=== PATIENT | male | born 1975 | race Caucasian/White ===

== ENCOUNTER → 2023-11-20 | Outpatient (CLI) | payer BC ==
[2023-11-20 14:32] LABS: Basophils # (A) 0.08 X 10*3/uL (0.00-0.10); Basophils % (A) 1.8 %; Eosinophils # (A) 0.37 X 10*3/uL (0.04-0.35); Eosinophils % (A) 8.4 %; HGB 13.2 g/dL (13.0-17.0); Lymphocytes % (A) 29.5 %; MCH 29.5 pg (27.0-32.0); MCHC 33.8 g/dL (32.0-37.0); MCV 87.2 FL (80.0-97.0); Mean Platelet Volume 10.9 FL (9.5-12.2); Monocytes # (A) 0.46 X 10*3/uL (0.20-1.00); Monocytes % (A) 10.4 %; NRBC Per 100 WBC 0 X 10*3/uL (0.00-0.01); Neutrophils # (A) 2.18 X 10*3/uL (1.80-7.70); Neutrophils % (A) 49.4 %; Platelet Count 200 X 10*3/uL (140-440); RBC 4.47 X 10*6/uL (4.40-5.60); RDW 13.3 % (11.5-14.5); WBC 4.41 X 10*3/uL (4.50-10.00)
[2023-11-20 15:10] LABS: ALT 35 U/L (10-49); AST 30 U/L (14-35); Albumin 5.1 g/dL (3.8-4.9); Albumin/Globulin Ratio 1.96 Ratio (1.60-3.17); Alkaline Phosphatase 69 U/L (41-126); BUN/Creat Ratio 10.33 Ratio (12.00-20.00); Blood Urea Nitrogen 9.3 mg/dL (9.0-27.0); Calcium 10.4 mg/dL (8.7-10.3); Carbon Dioxide 22.9 mmol/L (21.6-31.8); Chloride 102 mmol/L (96-109); Chol/HDL Ratio 6.59 Ratio; Globulin 2.6 g/dL (1.6-3.3); Glucose 96 mg/dL (70-110); LDL Cholesterol,Calculated 123.1 mg/dL (0.0-131.0); Sodium 140 mmol/L (135-145); Total Bilirubin 0.5 mg/dL (0.3-1.2); Total Protein 7.7 g/dL (6.2-8.2)
== END | disposition home or self-care (01) ==
LOC: LABWHC1 09:53
PROVIDERS: ATTEND Family Medicine
DX: Z00.00 Encounter for general adult medical examination without abnormal findings (principal); Z13.220 Encounter for screening for lipoid disorders; Z13.29 Encounter for screening for other suspected endocrine disorder; K59.00 Constipation, unspecified; G47.33 Obstructive sleep apnea (adult) (pediatric); E66.3 Overweight; K21.9 Gastro-esophageal reflux disease without esophagitis; G43.109 Migraine with aura, not intractable, without status migrainosus; R53.83 Other fatigue; R53.81 Other malaise; Z68.25 Body mass index [BMI] 25.0-25.9, adult
CPT/HCPCS: 36415; 80053; 80061; 82040; 82306; 82607; 83036; 84270; 84403; 84443; 85025

== ENCOUNTER → 2024-03-10 | Outpatient (CLI) | payer BC ==
[2024-03-10 14:37] VITALS: BP 128/86; PULSE 71; RESP 16; TEMP 98.6
--- NOTE | 2024-03-10 15:10 | P.SLEEP ---
History of Present Illness DATE: 03/10/2024 CONSULTATION/NEW PATIENT EVALUATION HISTORY OF PRESENT ILLNESS/SLEEP-WAKE EVALUATION: 49-year-old gentleman had be en evaluated in the sleep center for obstructive sleep apnea hypopnea syndrome. Patient had been diagnosed with obstructive sleep apnea in 2019 in [place]. Since that time patient is on treatment with CPAP every night. I checked CPAP unit CPAP pressure in the range between 6 and 17, average 15.9. Usage is 25 out of 30 nights, average 5.7 hours per night. Leak is 1 L/min which is normal. Ap jefferson hypopnea index is 1.4 which is normal. SLEEP SCHEDULE: Usually sleep schedule from 10:30 PM to 6:30 AM on weekdays and from 11:30 PM to 7:30 AM on weekend. FALLING ASLEEP: No problems with falling asleep. DURING SLEEP: Practically no snoring with CPAP, patient wakes up from sleep once to use the restroom. No history of hypnogogical hallucinations, sleep paralysis, or cataplexy. DURING THE DAY/WAKE STATE: During the day patient may have episode episodes of tiredness and sleepiness. [place] Sleepiness Scale is 7. Patient may take nap once a day 2-3 times per week. PAST MEDICAL HISTORY: Anxiety, acid reflux, migraine. PAST SURGICAL HISTORY: Right knee ACL and meniscus surgery. MEDICATIONS: Please see below. SOCIAL HISTORY: Please see below. FAMILY HISTORY: Stroke, cancer, mental illness. REVIEW OF SYSTEMS: Snoring without CPAP and practically no snoring on CPAP. No fevers. No double vision. No recent chest pain. No shortness of breath. No abdominal pain. No bleeding episodes. No blood in urine. No seizure episodes. PHYSICAL EXAMINATION: GENERAL: A pleasant patient without any distress. VITAL SIGNS: Please see below. Weight is 204.2 pounds, BMI 38.7. HEENT: PERRLA, EOMI. Evaluation of oropharynx showed tongue protrudes midline, low position of soft palate Mallampati 4. NECK: Supple. No JVD. Thyroid is not palpable. 16.5 inches in circumference. LUNGS: Clear to percussion and to auscultation. Good air exchange. No wheezing or rhonchi. HEART: S1, S2 regular. No murmurs, gallops or rubs. ABDOMEN: Soft and nontender. Bowel sounds are present. No organomegaly appreciated. EXTREMITIES: No clubbing or cyanosis. SPOOL TENDER: Awake, alert, and oriented x3. Cranial nerves 2 to 7 intact. There is no fasciculation or atrophy noted. No focal deficits observed. ASSESSMENT: 1. History of obstructive sleep apnea for about 4 years. Patient continued to use CPAP equipment most of the nights, good compliance. Normal respiration reading from CPAP unit. Extremely low position of soft palate. Retrognathia 3 mm. Obstructive sleep apnea hypopnea syndrome. 2. Obesity, BMI 38.7. 3. Anxiety. 4. Acid reflux. 5 migraine. 6 . Status post right knee ACL and meniscus surgeries. PLAN: 1. Will get results of previous sleep studies. 2. Patient should continue to use CPAP equipment every night for the whole night. 3. Preferable position during sleep on the side. 4. No driving if patient feels any sleepiness. Patient is aware of civil and criminal liability for unsafe driving. 5. Sleep hygiene with regular sleep time for at least 7.5-8 hours. 6. Watching and losing weight. 7. Prescription for all necessary CPAP supplies. 8. Follow-up visit in 6 months, or earlier if patient has any problems Thank you very much for referring this patient for consultation. Sincerely, Stuart Wallace MD, PhD, FAASM. Diplomat of [place] [employer], Sleep Medicine Board by [place] [employer] [place] [employer] of [facility] [place] Past Medical History Past Medical History: GERD/Reflux, Hyperlipidemia, Sleep Apnea/CPAP/BIPAP Additional Past Medical History / Comment(s): High triglycerides, arthritis - grade 3 - knees, anxiety, migraines History of Any Multi-Drug Resistant Organisms: None Reported Past Surgical History: Orthopedic Surgery Additional Past Surgical History / Comment(s): RIGHT KNEE- ACL/MENISCUS (MENISCUS X 3) Past Psychological History: Anxiety Smoking Status: Never smoker Past Alcohol Use History: None Reported Past Drug Use History: None Reported - Past Family History Father Family Medical History: CVA/TIA, Hyperlipidemia Additional Family Medical History / Comment(s): PARKINSONS, LEUKEMIA, INSOMNIA, DEPRESSION (ALSO - BROTHER WITH DIABETES) Medications and Allergies Home Medications Medication Instructions Recorded Confirmed Type Divalproex Sodium [Depakote] 500 mg PO DAILY 03/10/24 03/10/24 History Escitalopram [Lexapro] 10 mg PO DAILY 03/10/24 03/10/24 History Ondansetron Odt [Zofran Odt] 4 mg PO Q12HR PRN 03/10/24 03/10/24 History Pantoprazole [Protonix] 40 mg PO DAILY 03/10/24 03/10/24 History Rimegepant Sulfate [Nurtec Odt] 75 mg PO DIRECTED PRN 03/10/24 03/10/24 History Physical Exam Vitals: Vital Signs Temp Pulse Resp BP Pulse Ox 03/10/24 14:35 98.6 F 71 16 128/86 97 Sleep Note - Sleep Data ESS Total: 7 - Sleep Note Sleep Note: Temperature: 98.6 F Pulse Rate: 71 Respiratory Rate: 16 Blood Pressure: 128/86 SpO2: 97 Height: Weight: BMI: Neck Circumference: 16.5
== END ==
LOC: 3 N SLEEP 13:51
PROVIDERS: ATTEND Internal Medicine
CPT/HCPCS: 99211

== ENCOUNTER → 2024-04-20 | Outpatient (CLI) | payer BC ==
[2024-04-20 15:48] LABS: Chol/HDL Ratio 6.94 Ratio; LDL Cholesterol,Calculated 130.8 mg/dL (0.0-131.0)
== END | disposition home or self-care (01) ==
LOC: LABWHC1 08:25
PROVIDERS: ATTEND Family Medicine
CPT/HCPCS: 36415; 80061; 84403

== ENCOUNTER → 2024-07-20 | Outpatient (CLI) | payer BC ==
[2024-07-20 15:31] LABS: Basophils # (A) 0.08 X 10*3/uL (0.00-0.10); Basophils % (A) 1.9 %; Eosinophils # (A) 0.29 X 10*3/uL (0.04-0.35); HCT 40.2 % (39.6-50.0); HGB 12.8 g/dL (13.0-17.0); Lymphocytes # (A) 1.35 X 10*3/uL (0.90-5.00); Lymphocytes % (A) 32.4 %; MCH 27.4 pg (27.0-32.0); MCHC 31.8 g/dL (32.0-37.0); MCV 85.9 FL (80.0-97.0); Mean Platelet Volume 10.5 FL (9.5-12.2); Monocytes # (A) 0.43 X 10*3/uL (0.20-1.00); Monocytes % (A) 10.3 %; NRBC Per 100 WBC 0 X 10*3/uL (0.00-0.01); Neutrophils # (A) 2.01 X 10*3/uL (1.80-7.70); Neutrophils % (A) 48.2 %; Platelet Count 218 X 10*3/uL (140-440); RBC 4.68 X 10*6/uL (4.40-5.60); RDW 13.8 % (11.5-14.5); WBC 4.17 X 10*3/uL (4.50-10.00)
[2024-07-20 16:43] LABS: ALT 28 U/L (10-49); AST 22 U/L (14-35); Alkaline Phosphatase 66 U/L (41-126); Blood Urea Nitrogen 10.4 mg/dL (9.0-27.0); Calcium 9.7 mg/dL (8.7-10.3); Chloride 100 mmol/L (96-109); Chol/HDL Ratio 6.79 Ratio; Globulin 2.5 g/dL (1.6-3.3); Glucose 93 mg/dL (70-110); LDL Cholesterol,Calculated 117.9 mg/dL (0.0-131.0); Potassium 4.4 mmol/L (3.5-5.5); Sodium 139 mmol/L (135-145); Total Bilirubin 0.4 mg/dL (0.3-1.2); Total Protein 7.5 g/dL (6.2-8.2)
== END | disposition home or self-care (01) ==
LOC: LABWHC1 08:43
PROVIDERS: ATTEND Family Medicine
DX: Z13.29 Encounter for screening for other suspected endocrine disorder (principal); Z79.899 Other long term (current) drug therapy; G43.109 Migraine with aura, not intractable, without status migrainosus; E78.2 Mixed hyperlipidemia; G47.33 Obstructive sleep apnea (adult) (pediatric); R53.83 Other fatigue; E34.9 Endocrine disorder, unspecified
CPT/HCPCS: 80061; 80053; 85025; 84403; 36415; G0103

== ENCOUNTER → 2024-10-18 | Outpatient (CLI) | payer BC ==
[2024-10-18 15:32] LABS: HCT 38.6 % (39.6-50.0); HGB 12.3 g/dL (13.0-17.0); MCH 26.7 pg (27.0-32.0); MCHC 31.9 g/dL (32.0-37.0); MCV 83.7 FL (80.0-97.0); Mean Platelet Volume 11.3 FL (9.5-12.2); NRBC Per 100 WBC 0 X 10*3/uL (0.00-0.01); Platelet Count 217 X 10*3/uL (140-440); RBC 4.61 X 10*6/uL (4.40-5.60); RDW 14.2 % (11.5-14.5); WBC 3.29 X 10*3/uL (4.50-10.00)
[2024-10-18 15:33] LABS: Basophils # (A) 0.06 X 10*3/uL (0.00-0.10); Basophils % (A) 1.8 %; Eosinophils # (A) 0.26 X 10*3/uL (0.04-0.35); Eosinophils % (A) 7.9 %; Lymphocytes # (A) 0.96 X 10*3/uL (0.90-5.00); Lymphocytes % (A) 29.2 %; Monocytes % (A) 15.2 %; Neutrophils % (A) 45.6 %
[2024-10-18 16:22] LABS: ALT 26 U/L (10-49); AST 25 U/L (14-35); Albumin 4.7 g/dL (3.8-4.9); Albumin/Globulin Ratio 1.96 Ratio (1.60-3.17); Alkaline Phosphatase 65 U/L (41-126); Blood Urea Nitrogen 7.4 mg/dL (9.0-27.0); Calcium 9.4 mg/dL (8.7-10.3); Carbon Dioxide 25.9 mmol/L (21.6-31.8); Chloride 102 mmol/L (96-109); Globulin 2.4 g/dL (1.6-3.3); Glucose 97 mg/dL (70-110); LDL Cholesterol,Calculated 119.4 mg/dL (0.0-131.0); Potassium 3.8 mmol/L (3.5-5.5); Sodium 139 mmol/L (135-145); Total Bilirubin 0.4 mg/dL (0.3-1.2); Total Protein 7.1 g/dL (6.2-8.2)
== END | disposition home or self-care (01) ==
LOC: LABWHC1 08:46
PROVIDERS: ATTEND Family Medicine
DX: Z00.00 Encounter for general adult medical examination without abnormal findings (principal); Z12.5 Encounter for screening for malignant neoplasm of prostate; Z13.29 Encounter for screening for other suspected endocrine disorder; E78.2 Mixed hyperlipidemia; E34.9 Endocrine disorder, unspecified; K59.00 Constipation, unspecified; F41.1 Generalized anxiety disorder; K21.9 Gastro-esophageal reflux disease without esophagitis; G43.109 Migraine with aura, not intractable, without status migrainosus; G47.33 Obstructive sleep apnea (adult) (pediatric); R53.83 Other fatigue; Z79.899 Other long term (current) drug therapy
CPT/HCPCS: 80061; 80053; 84443; 85025; 84403; 82306; 83036; 36415; G0103